=== PATIENT | male | born 1950 ===

== ENCOUNTER 2018-05-07 06:30 | Day surgery (SDC) | payer OTHER ==
[~2018-05-07 06:30] MED LIST: AMLODIPINE-OLM1 EAC1; FORTAMET1000 MG; HUMULIN N100 UNIT/2; OMEPRAZOLE20 M1; PRINIVIL20 MG
[2018-05-07] MEDS ORDERED: PERCOCET 5-3251 EACH PO (14:18)
[2018-05-07] MEDS ORDERED: RECTICARE30 GM TOP (14:18)
== END 2018-05-07 21:00 | disposition home or self-care (01) ==
LOC: CIR.AMB 06:30
DX: D12.9 Benign neoplasm of anus and anal canal (principal)